=== PATIENT | female | born 1985 | race Caucasian/White ===

== ENCOUNTER 2016-08-17 20:11 | Emergency (ER) | payer OTHER ==
[2016-08-17 20:23] VITALS: TEMP 98.3; BMI 45.8
--- NOTE | 2016-08-17 20:48 | PDOC ---
History of Present Illness - General History Source: Patient <Graham Alfonso - Last Filed: 08/18/16 00:25> - General History Source: Patient Exam Limitations: No Limitations - History of Present Illness Initial Comments: 08/17/16 20:57 The patient is a 31 year old female with no significant past medical history who presents to the ED for 2 days of frequency, urgency, and dysuria. Patient reports associated R flank pain. She also has complaints of R lower quadrant pain, fever, chills, sore throat, and generalized malaise. Denies nausea, vomiting, or diarrhea. Denies any sick contacts. States she is currently on her menses and does not believe she is . The patient denies diaphoresis, cough, SOB, chest pain, and palpitations. Allergies: NKDA Social History: Denies alcohol, tobacco, or drug use. Past Surgical History: None reported PCP: None reported <Iesha Garcia - Last Filed: 08/18/16 01:29> - General Chief Complaint: Pain Stated Complaint: THROAT/STOMACH PAIN Time Seen by Provider: 08/17/16 20:44 Past History - Past Medical History GI Disorders: Yes (Fatty liver (steatosis)) - Psycho/Social/Smoking Cessation Hx Anxiety: No Suicidal Ideation: No Smoking History: Never smoked Information on smoking cessation initiated: No Hx Alcohol Use: No Drug/Substance Use Hx: No Substance Use Type: None <Graham Alfonso - Last Filed: 08/18/16 00:25> <Iesha Garcia - Last Filed: 08/18/16 01:29> - Past Medical History Allergies/Adverse Reactions: Allergies Allergy/AdvReac Type Severity Reaction Status Date / Time No Known Allergies Allergy Verified 08/17/16 20:18 Home Medications: Ambulatory Orders Ibuprofen 800 mg PO TID #30 tablet 08/18/16 Levofloxacin [Levaquin -] 500 mg PO DAILY #7 tablet 08/18/16 Review of Systems - Review of Systems Able to Perform ROS?: Yes Comments:: 08/17/16 20:57 CONSTITUTIONAL: +fever, chills, generalized malaise Absent: no fatigue EYES: Absent: visual changes ENT: +sore throat Absent: ear pain CARDIOVASCULAR: Absent: chest pain, no palpitations RESPIRATORY: Absent: cough, no SOB GI: +R lower quadrant pain Absent: no nausea, no vomiting, no constipation, no diarrhea GENITOURINARY: +frequency, urgency, dysuria, R flank pain MUSCULOSKELETAL: Absent: back pain, no arthralgia, no myalgia SKIN: Absent: rash NEURO: Absent: headache <RadhaChristianoIesha - Last Filed: 08/18/16 01:29> *Physical Exam - Vital Signs Last Vital Signs Temp Pulse Resp BP Pulse Ox 98.3 F 83 20 120/82 97 08/17/16 20:19 08/17/16 20:19 08/17/16 20:19 08/17/16 20:19 08/17/16 20:19 <Graham Alfonso - Last Filed: 08/18/16 00:25> - Vital Signs Last Vital Signs Temp Pulse Resp BP Pulse Ox 98.3 F 83 20 120/82 97 08/17/16 20:19 08/17/16 20:19 08/17/16 20:19 08/17/16 20:19 08/17/16 20:19 - Physical Exam Comments: 08/17/16 20:57 GENERAL: Well-appearing, well-nourished. No apparent distress. HEENT: Normocephalic, atraumatic. PERRL, EOM intact. Oropharynx is clear. CARDIOVASCULAR: Normal S1, S2. Regular rate and rhythm. PULMONARY: Clear to auscultation bilaterally. ABDOMEN: Soft, non-distended, mild right lower quadrant tenderness. No rebound or guarding. EXTREMITIES: Normal ROM in all four extremities. No gross deformities. SKIN: Warm, dry. No rash NEUROLOGICAL: No focal neurological deficits. <Iesha Garcia - Last Filed: 08/18/16 01:29> Medical Decision Making - Medical Decision Making 08/18/16 00:27 Dr. Alfonso: The scribe's documentation has been prepared under my direction and personally reviewed by me in its entirery. I confirm that the note above accurately reflects all work, treatment, procedures, and medical decision making performed by me. <Graham Alfonso - Last Filed: 08/18/16 00:25> *DC/Admit/Observation/Transfer - Discharge Dispostion Admit: No <Graham Alfonso - Last Filed: 08/18/16 00:25> - Attestations Scribe Attestion: 08/17/16 20:57 Documentation prepared by Iesha Garcia, acting as biomedical scientist for Graham Alfonso MD/DO. <Iesha Garcia - Last Filed: 08/18/16 01:29> Diagnosis at time of Disposition: Dysuria, Pelvic pain, Ovarian cyst - Discharge Dispostion Disposition: HOME Condition at time of disposition: Stable - Prescriptions Prescriptions: Ibuprofen 800 mg PO TID #30 tablet Levofloxacin [Levaquin -] 500 mg PO DAILY #7 tablet - Referrals Referrals: Justus Major MD [Primary Care Provider] - Terrence Aponte MD [Staff Physician] - - Patient Instructions Printed Discharge Instructions: DI for Dysuria -- Adult, DI for Ovarian Cyst Print Language: EAST TIMOR[place]
[2016-08-17 21:51] LABS: URINE APPEARANCE CLEAR; URINE BILIRUBIN NEGATIVE (NEGATIVE); URINE COLOR STRAW; URINE GLUCOSE (UA) NEGATIVE (NEGATIVE); URINE KETONE NEGATIVE (NEGATIVE); URINE LEUK ESTERASE NEGATIVE (NEGATIVE); URINE NITRITE NEGATIVE (NEGATIVE); URINE PROTEIN NEGATIVE (NEGATIVE); URINE UROBILINOGEN 2.0 E.U/dl E.U./dl (0.2-1.0)
[2016-08-17 22:23] LABS: URINE BLOOD 3+ (NEGATIVE)
[2016-08-17 23:04] LABS: URINE BACTERIA RARE /hpf (NONE SEEN); URINE MUCUS RARE; URINE RBC 629 /hpf (0-3); URINE WBC 1 /hpf (3-5)
[2016-08-18] MEDS ORDERED: IBUPROFEN 400 MG TABLET (FP) PO ONE ×2 (00:24→00:28)
[2016-08-18] MEDS ORDERED: LEVOFLOXACIN 500 MG TABLET (FP) PO ONE (00:25)
[2016-08-18] MEDS ORDERED: LEVOFLOXACIN 500 MG TABLET (FP) ONE (00:28)
[2016-08-18 00:38] VITALS: BP 118/78; PULSE 72
== END 2016-08-18 00:33 | disposition home or self-care (01) ==
LOC: JER 20:11
DX: N83.209 Unspecified ovarian cyst, unspecified side (principal); R30.0 Dysuria; R10.2 Pelvic and perineal pain; K76.0 Fatty (change of) liver, not elsewhere classified
CPT/HCPCS: 76830-TC; 81003; 81015; 84703; 87086; 99282-25

== ENCOUNTER 2017-12-01 00:22 | Emergency (ER) | payer OTHER ==
[2017-12-01 01:20] VITALS: BP 159/78; PULSE 82; TEMP 98.1; BMI 44.5
[2017-12-01] MEDS ORDERED: FLUORESCEIN NA 1 EA STRIP OU ONE (01:32)
[2017-12-01] MEDS ORDERED: TETRACAINE 0.5% HCL 0.6ML DROPPER.BOTTLE OP ONE (01:32)
[2017-12-01] MEDS ORDERED: TETRACAINE 0.5% OPHTH SOLN 2 ML BOTTLE ONE (01:48)
[2017-12-01] MEDS ORDERED: FLUORESCEIN NA 1 EA STRIP ONE (01:48)
[2017-12-01] MEDS ORDERED: ERYTHROMYCIN 0.5% OPHTHALMIC OINTMENT 3.5 GM TUBE OU ONE (02:02)
[2017-12-01] MEDS ORDERED: ERYTHROMYCIN 0.5% OPHTHALMIC OINTMENT 3.5 GM TUBE ONE (02:05)
[2017-12-01 02:11] LABS: URINE APPEARANCE SLCLOUDY; URINE BILIRUBIN NEGATIVE (<2.0 mg/dL); URINE COLOR DKYELLOW; URINE GLUCOSE (UA) NEGATIVE (NEGATIVE); URINE KETONE NEGATIVE (NEGATIVE); URINE LEUK ESTERASE NEGATIVE (NEGATIVE); URINE NITRITE NEGATIVE (NEGATIVE); URINE UROBILINOGEN NEGATIVE mg/dL (0.2-1.0)
[2017-12-01 02:12] LABS: HCG,QUALITATIVE URINE Negative
--- NOTE | 2017-12-01 02:12 | PDOC ---
History of Present Illness - General Chief Complaint: Pain Stated Complaint: pain in the left arm Time Seen by Provider: 12/01/17 01:01 History Source: Patient - History of Present Illness Initial Comments: 12/01/17 02:09 32 year old female c/o left shoulder pain x 1 week with lateral neck heaviness and left eye redness and pain x 3 days and frequent tearing. Patient reports that she woke up with left eye swelling which has gotten better, now with increased tearing and pain. patient reports that eye is itchy. denies nausea / vomiting, abdominal pain, fever/ chills, chest pain, diaphoresis Past History - Past Medical History Allergies/Adverse Reactions: Allergies Allergy/AdvReac Type Severity Reaction Status Date / Time No Known Allergies Allergy Verified 08/02/17 22:31 Home Medications: Ambulatory Orders Ibuprofen 800 mg PO TID #30 tablet 08/18/16 levoFLOXacin [Levaquin -] 500 mg PO DAILY #7 tablet 08/18/16 Cephalexin Monohydrate [Keflex -] 500 mg PO BID #14 capsule 12/01/17 Erythromycin 0.5% Eye Ointment [Erythromycin 0.5% Eye Ointment -] 1 applic OU BID #1 tube 12/01/17 COPD: No GI Disorders: Yes (Fatty liver (steatosis)) - Suicide/Smoking/Psychosocial Hx Smoking History: Never smoked Have you smoked in the past 12 months: No Information on smoking cessation initiated: No Hx Alcohol Use: No Drug/Substance Use Hx: No Substance Use Type: None Review of Systems - Review of Systems Able to Perform ROS?: Yes Is the patient limited Fijian proficient: No Constitutional: No: Symptoms Reported, See HPI, Chills, Diaphoresis, Fever, Loss of Appetite, Malaise, Night Sweats, Weakness, Weight Stable, Unintentional Wgt. Loss, Unexplained wgt Loss, Other HEENTM: Yes: Eye Pain Musculoskeletal: Yes: Other (left shoulder and neck pain) *Physical Exam - Vital Signs Last Vital Signs Temp Pulse Resp BP Pulse Ox 98.1 F 82 18 159/78 99 12/01/17 01:16 12/01/17 01:16 12/01/17 01:16 12/01/17 01:16 12/01/17 01:16 - Physical Exam General Appearance: Yes: Appropriately Dressed HEENT: positive: Other (left eye + fluorescein intake. erythema. vision intact, pupils reactive) Respiratory/Chest: positive: Lungs Clear, Normal Breath Sounds Cardiovascular: positive: Regular Rhythm, Regular Rate Gastrointestinal/Abdominal: positive: Normal Bowel Sounds, Soft Musculoskeletal: negative: Vertebral Tenderness Extremity: positive: Normal Capillary Refill, Normal Inspection, Normal Range of Motion Integumentary: positive: Normal Color, Dry, Warm Neurologic: positive: Fully Oriented, Alert, Normal Mood/Affect Heart Score/ECG Review - ECG Intrepretation Rhythm: Regular Rhythm Comment:: 12/01/17 03:[address] and T wave abnormality; 75 bpm 12/01/17 03:04 ED Treatment Course - LABORATORY CBC & Chemistry Diagram: 12/01/17 02:46 12/01/17 02:46 - Medications Given in the ED: ED Medications Discontinued Medications Generic Name Dose Route Start Last Admin Trade Name Freq PRN Reason Stop Dose Admin Fluorescein Sodium 1 ea 12/01/17 01:32 12/01/17 01:58 Fluorets - OU 12/01/17 01:33 1 ea ONCE ONE Administration Tetracaine HCl 1 drop 12/01/17 01:32 12/01/17 01:58 Tetravisc 0.5% Eye Drops - OP 12/01/17 01:33 1 drop ONCE ONE Administration Progress Note - Progress Note Progress Note: A: left shoulder and neck pain non reproducible. will r/o cardiac cause corneal abrasion P: 1. pain control EKG flipped Ts wiill rule cardiac cause. cbc/ cmp/ troponin. WNL UA: large WBC. will treat *DC/Admit/Observation/Transfer Diagnosis at time of Disposition: Shoulder pain, left Qualifiers: Chronicity: acute Qualified Code(s): M25.512 - Pain in left shoulder Corneal abrasion, left Qualifiers: Encounter type: initial encounter Qualified Code(s): S05.02XA - Injury of conjunctiva and corneal abrasion without foreign body, left eye, initial encounter UTI (urinary tract infection) Qualifiers: Urinary tract infection type: acute cystitis Hematuria presence: with hematuria Qualified Code(s): N30.01 - Acute cystitis with hematuria - Discharge Dispostion Disposition: HOME - Prescriptions Prescriptions: Cephalexin Monohydrate [Keflex -] 500 mg PO BID #14 capsule Erythromycin 0.5% Eye Ointment [Erythromycin 0.5% Eye Ointment -] 1 applic OU BID #1 tube - Referrals Referrals: Tal Howe MD [Staff Physician] - Call tomorrow - Patient Instructions Printed Discharge Instructions: Corneal Abrasion Additional Instructions: take ibuprofen every 6 hours as needed for pain take cephalexin as prescribed. follow up with your doctor as soon as possible drink plenty of fluids - Post Discharge Activity Forms/Work/School Notes: Back to Work
[2017-12-01] MEDS ORDERED: KETOROLAC TROMETHAMINE 30 MG/1 ML VIAL IM ONE (02:13)
[2017-12-01 02:14] LABS: URINE PROTEIN 2+ (NEGATIVE)
[2017-12-01 02:15] LABS: EPI CELLS FEW /HPF (FEW); YEAST FEW
[2017-12-01] MEDS ORDERED: KETOROLAC TROMETHAMINE 30 MG/1 ML VIAL ONE (02:25)
[2017-12-01 03:14] LABS: BASO % 0.7 % (0-2.0); EOS % 0.4 % (0-4.5); HEMATOCRIT 39.4 % (32.4-45.2); HEMOGLOBIN 13.6 GM/dL (10.7-15.3); LYMPH % 35.8 % (8-40); MCH 31.8 pg (25.7-33.7); MCHC 34.5 g/dl (32.0-36.0); MEAN CELL VOLUME 92.1 fl (80-96); MEAN PLT VOLUME 11.5 fl (7.5-11.1); MONO % 6.7 % (3.8-10.2); NEUT % 56.4 % (42.8-82.8); PLATELET COUNT 139 K/MM3 (134-434); RBC 4.28 M/mm3 (3.60-5.2); RDW 13.6 % (11.6-15.6); WHITE BLOOD COUNT 8.6 K/mm3 (4.0-10.0)
[2017-12-01 03:54] LABS: ALBUMIN 3.8 g/dl (3.4-5.0); ALK PHOS 92 U/L (45-117); ANION GAP 7 MMOL/L (8-16); BILIRUBIN,TOTAL 0.5 mg/dL (0.2-1); BLOOD UREA NITROGEN 12 mg/dL (7-18); CALCIUM 8.4 mg/dL (8.5-10.1); CHLORIDE 105 mmol/L (98-107); CO2 26 mmol/L (21-32); CREATININE 0.7 mg/dL (0.55-1.3); GLUCOSE,RANDOM 88 mg/dL (74-106); POTASSIUM 3.6 mmol/L (3.5-5.1); SGOT/AST 34 U/L (15-37); SGPT/ALT 55 U/L (13-61); SODIUM 138 mmol/L (136-145); TOT PROT 7.3 g/dl (6.4-8.2)
--- NOTE | 2017-12-01 15:28 | EKG ---
Test Reason : Blood Pressure : / mmHG Vent. Rate : 075 BPM Atrial Rate : 075 BPM P-R Int : 152 ms QRS Dur : 078 ms QT Int : 414 ms P-R-T Axes : 049 081 047 degrees QTc Int : 462 ms POOR DATA QUALITY, INTERPRETATION MAY BE ADVERSELY AFFECTED NORMAL SINUS RHYTHM NONSPECIFIC ST AND T WAVE ABNORMALITY ABNORMAL ECG NO PREVIOUS ECGS AVAILABLE Confirmed by MD Chalo, Joseph ([id number]) on 12/01/2017 3:27:54 PM Referred By: Confirmed By:Joseph Isabel MD
== END 2017-12-01 04:16 | disposition home or self-care (01) ==
LOC: JER 00:22
DX: S05.02XA Injury of conjunctiva and corneal abrasion without foreign body, left eye, initial encounter (principal); N30.01 Acute cystitis with hematuria; X58.XXXA Exposure to other specified factors, initial encounter; Y93.89 Activity, other specified; Y92.89 Other specified places as the place of occurrence of the external cause; Y99.8 Other external cause status
CPT/HCPCS: 36415; 80053; 81003; 81015; 84484; 84703; 85025; 93005; 93010; 99281-25

== ENCOUNTER → 2019-01-03 | Day surgery (SDC) | payer OTHER ==
--- NOTE | 2019-01-06 18:10 | PATH ---
Surgical Pathology Report Patient Name: ROMERO DESHPANDE [facility]. Rec. #: [id number] /Age/Gender: 1985 (Age: 33) / F Account: [id number] Location: RADIOLOGY [facility] Taken: 01/03/2019 Received: 01/03/2019 Reported: 01/06/2019 Physicians: Patricia George M.D. Specimen(s) Received A: LEFT BREAST CORE BIOPSY LESION #1 B: LEFT BREAST CORE BIOPSY LESION #2 Clinical History Lesion #1, 8-9:00, 1.3 cm mass Lesion #2, 8-9:00, 1.2 cm mass Final Diagnosis A. BREAST, LEFT, 8:30, LESION #1, ULTRASOUND GUIDED CORE BIOPSY: BENIGN BREAST PARENCHYMA WITH STROMAL FIBROSIS AND MICROCYSTS. B. BREAST, LEFT, 8:30, LESION #2, ULTRASOUND GUIDED CORE BIOPSY: BENIGN BREAST PARENCHYMA WITH STROMAL FIBROSIS, MICROCYSTS, AND ASSOCIATED MICROCALCIFICATIONS. Electronically Signed Nicky Balbuena M.D. Gross Description A. Received in formalin labeled "left breast 8:30 #1," are 4 johnston-yellow, cylindrical portions of fibroadipose tissue ranging from 0.6-1.5 cm in length and averaging 0.1 cm in diameter. The specimens are submitted in toto in one cassette. B. Received in formalin labeled "left breast 8:30 #2," are 5 johnston-yellow, cylindrical portions of fibroadipose tissue ranging from 0.2-0.4 cm in length and averaging 0.1 cm diameter. The specimens are submitted in toto in one cassette. Time to formalin fixation: Less than one minute Total formalin fixation time: Approximately 7 hours. /01/03/2019 [place]udi01/03/2019
== END | disposition home or self-care (01) ==
LOC: JRADUS-SUR 09:30 → FRAD 09:30
PROVIDERS: ATTEND Physician Assistant
PROC: 0H9U3ZX Drainage of Left Breast, Percutaneous Approach, Diagnostic (ICD-10-PCS; principal; 2019-01-03)
DX: D24.2 Benign neoplasm of left breast (principal)
CPT/HCPCS: 19083; 19084; 87899; 88305-TC; A4648

== ENCOUNTER 2019-10-18 13:56 | Emergency (ER) | payer OTHER ==
[2019-10-18 14:10] VITALS: BMI 40.0
[2019-10-18 15:40] LABS: PH,URINE 7.5 (5.0-8.0); URINE APPEARANCE CLEAR; URINE BILIRUBIN NEGATIVE (NEGATIVE); URINE COLOR YELLOW; URINE GLUCOSE (UA) NEGATIVE (NEGATIVE); URINE KETONE NEGATIVE (NEGATIVE); URINE LEUK ESTERASE NEGATIVE (NEGATIVE); URINE NITRITE NEGATIVE (NEGATIVE); URINE PROTEIN NEGATIVE (NEGATIVE); URINE UROBILINOGEN 0.2 mg/dL (0.2-1.0)
[2019-10-18] MEDS ORDERED: ACETAMINOPHEN 325 MG TABLET (FP) PO ONE (15:43)
--- NOTE | 2019-10-18 15:43 | PDOC ---
History of Present Illness - General Chief Complaint: Pain, Acute Stated Complaint: BACK/EAR PAIN Time Seen by Provider: 10/18/19 14:19 - History of Present Illness Initial Comments: 34 yo female with PMH of ovarian cysts presents with right ear pain and right sided back pain. Her right ear pain began 3 days ago and the symptoms progressed from itchiness/pain to ringing and loss of hearing. She has taken ear wax removal drops in her ear and used a q-tip to attempt to dislodge ear wax. She denies drainage, fevers, chills, recent URI. Her right sided back pain started 2 weeks ago and radiates to the abdomen. It is intermittent and associated with movement. She had 1 episode of hematuria. Never had a history of renal stones. She has taken tylenol/ibuprofen for pain, last dose was yesterday. She denies fevers, chills, dysuria, cp, sob. Past History - Medical History Allergies/Adverse Reactions: Allergies Allergy/AdvReac Type Severity Reaction Status Date / Time No Known Allergies Allergy Verified 10/18/19 14:06 Home Medications: Ambulatory Orders Acetaminophen [Tylenol] 325 mg PO TID #30 capsule 10/18/19 Amoxicillin/Potassium Clav [Augmentin 875-125 Tablet] 1 each PO BID 10 Days #20 tablet 10/18/19 Ibuprofen 400 mg PO TID #30 tablet 10/18/19 COPD: No GI Disorders: Yes (Fatty liver (steatosis)) - Reproductive History Is Patient Now?: No - Psycho-Social/Smoking History Smoking History: Never smoked Have you smoked in the past 12 months: No - Substance Abuse Hx (Audit-C & DAST Scrn) How often the patient has a drink containing alcohol: Never Score: In Men: 4 or > Positive; In Women: 3 or > Positive: 0 Screen Result (Pos requires Nsg. Audit-10AR): Negative In the last yr the pt used illegal drug/Rx for NonMed reason: No Score: Yes response is considered Positive: 0 Screen Result (Positive result requires Nsg. DAST-10): Negative Review of Systems - Review of Systems Constitutional: No: Chills, Fever HEENTM: Yes: Tinnitus, Other (difficulty hearing. sharp ear pain.). No: Recent change in vision, Double Vision, Ear Discharge Respiratory: No: Cough, Shortness of Breath Cardiac (ROS): No: Chest Pain, Palpitations ABD/GI: No: Diarrhea, Nausea, Vomiting : Yes: Flank Pain, Hematuria (2 weeks ago). No: Burning, Dysuria, Discharge, Frequency Musculoskeletal: Yes: Back Pain (right sided) Integumentary: No: Lesions, Pallor, Rash Neurological: Yes: Dizziness. No: Headache Psychiatric: No: Anxiety, Depression, Mood Swings Endocrine: No: Intolerance to Cold, Intolerance to Heat *Physical Exam - Vital Signs Last Vital Signs Temp Pulse Resp BP Pulse Ox 98.5 F 71 20 117/76 99 10/18/19 14:08 10/18/19 15:00 10/18/19 15:00 10/18/19 15:00 10/18/19 15:00 - Physical Exam General Appearance: Yes: Appropriately Dressed. No: Apparent Distress HEENT: positive: EOMI, Normal Voice Neck: negative: Tender, Rigid Respiratory/Chest: positive: Lungs Clear, Normal Breath Sounds. negative: Respiratory Distress Cardiovascular: positive: Regular Rhythm, Regular Rate, S1, S2 Gastrointestinal/Abdominal: positive: Flat, Soft, Other (right sided costovertebral tenderness. RLQ and suprapubic tenderness.). negative: Pulsatile Mass Musculoskeletal: positive: Normal Inspection, CVA Tenderness Extremity: positive: Normal Capillary Refill, Normal Inspection, Normal Range of Motion, Other (negative straight leg test) Integumentary: positive: Normal Color, Dry, Warm Neurologic: positive: Fully Oriented, Alert, Normal Mood/Affect ED Treatment Course - LABORATORY CBC & Chemistry Diagram: 10/18/19 15:30 10/18/19 15:30 - RADIOLOGY Radiology Studies Ordered: Category Date Time Status KIDNEY / RENAL US [US] Stat Ultrasound 10/18/19 15:20 Ordered Medical Decision Making - Medical Decision Making 34 yo female with PMH of ovarian cysts presents with right ear pain and right sided back pain. Right Ear Pain - ear pain, tinnitus, difficulty hearing - bulging tympanic membrane - most likely acute otitis media - amoxicillin sent to pharmacy Right Abdominal Pain - radiating to flank, 1 episode of hematuria - cbc, cmp, urine are negative - renal US negative for hydronephrosis - RUQ US negative for cholecystits - CT abdomen/pelvis negative for appendicitis Pt is stable for discharge Agreeable to follow up with GI for further workup of her RLQ pain Discharge - Discharge Information Problems reviewed: Yes Clinical Impression/Diagnosis: Acute otitis media, Abdominal pain Condition: Stable Disposition: HOME - Admission No - Additional Discharge Information Prescriptions: Amoxicillin/Potassium Clav [Augmentin 875-125 Tablet] 1 each PO BID 10 Days #20 tablet Ibuprofen 400 mg PO TID #30 tablet Acetaminophen [Tylenol] 325 mg PO TID #30 capsule - Follow up/Referral Referrals: Colby Florez PA [Primary Care Provider] - () Colby Patino MD [Staff Physician] - Vinicius Richter MD [Staff Physician] - - Patient Discharge Instructions Additional Instructions: Take your medication at home as prescribed for your ear infection and your abdominal pain. Follow up with your PCP and the OBGYN and Gastrointestinal doctors on your referral within 5 days. Return to the ED if your condition worsens and/or you experience worsening ear pain, discharge, headache, fevers, chills, worsening abdominal pain, diarrhea, constipation, bloody stools. - Post Discharge Activity
[2019-10-18 15:50] LABS: HEMATOCRIT 38.4 % (32.4-45.2); HEMOGLOBIN 13.1 GM/dL (10.7-15.3); MCH 31.9 pg (25.7-33.7); MCHC 34.1 g/dl (32.0-36.0); MEAN CELL VOLUME 93.5 fl (80-96); MEAN PLT VOLUME 11.2 fl (7.5-11.1); PLATELET COUNT 125 K/MM3 (134-434); RDW 13.1 % (11.6-15.6); WHITE BLOOD COUNT 6.6 K/mm3 (4.0-10.0)
[2019-10-18] MEDS ORDERED: ACETAMINOPHEN 325 MG TABLET (FP) ONE (16:10)
[2019-10-18 16:13] LABS: ALBUMIN 3.7 g/dl (3.4-5.0); BILIRUBIN,TOTAL 0.2 mg/dL (0.2-1); BLOOD UREA NITROGEN 11.4 mg/dL (7-18); CALCIUM 8.5 mg/dL (8.5-10.1); CREATININE 0.7 mg/dL (0.55-1.3); POTASSIUM 3.5 mmol/L (3.5-5.1); TOT PROT 6.8 g/dl (6.4-8.2)
[2019-10-18] MEDS ORDERED: IBUPROFEN 400 MG TABLET (FP) PO ONE ×3 (16:37→17:40)
--- NOTE | 2019-10-18 16:37 | PDOC ---
Documentation entered by Kolton Green SCRIBE, acting as scribe for Zoila Darden MD. Zoila Darden MD: This documentation has been prepared by the Norma guillen Aaron, SCRIBE, under my direction and personally reviewed by me in its entirety. I confirm that the documentation accurately reflects all work, treatment, procedures, and medical decision making performed by me. Attending Attestation - Resident Resident Name: Herbert Thrasher - HPI HPI: 10/18/19 15:53 The patient is a 34 year old female with a significant PMH of ovarian cysts who presents to the emergency department for R ear pain and R sided back pain. Patient reports that ear pain began 3 days ago with itchiness, pain, and ringing and has since progressed to hearing loss. Patient used ear wax removal drops and q-tip to try to dislodge ear wax. Patient denies drainage, fever, chills, or recent URI. Patient reports R sided back pain began 2 weeks ago, has been intermittent, and radiates to the abdomen. She took tylenol/ibuprofen for pain yesterday. Patient denies SOB, chest pain, dysuria, or any other symptoms. Allergies: NKDA Past surgical history: no history of renal stones PCP: Colby Florez PA - Physicial Exam PE: 10/18/19 16:22 Agree with resident exam. patient is alert and oriented and in no acute distress. + tenderness in the RUQ without guarding or rebound, + cardoza's. - Medical Decision Making 10/18/19 16:34 Pt presents to the ED complaining of RUQ pain with nausea without vomiting. Will check RUQ US to rule out cholecystitis. Also complaining of R ear pain, exam consistent with otitis--will treat with amoxicillin. Will give pain control and reassess. Discharge - Discharge Information Problems reviewed: Yes Clinical Impression/Diagnosis: Acute otitis media, Abdominal pain Condition: Stable Disposition: HOME - Additional Discharge Information Prescriptions: Amoxicillin/Potassium Clav [Augmentin 875-125 Tablet] 1 each PO BID 10 Days #20 tablet Ibuprofen 400 mg PO TID #30 tablet Acetaminophen [Tylenol] 325 mg PO TID #30 capsule - Follow up/Referral Referrals: Colby Florez PA [Primary Care Provider] - () Colby Patino MD [Staff Physician] - Vinicius Richter MD [Staff Physician] - - Patient Discharge Instructions Additional Instructions: Take your medication at home as prescribed for your ear infection and your abdominal pain. Follow up with your PCP and the OBGYN and Gastrointestinal doctors on your referral within 5 days. Return to the ED if your condition worsens and/or you experience worsening ear pain, discharge, headache, fevers, chills, worsening abdominal pain, diarrhea, constipation, bloody stools. - Post Discharge Activity
[2019-10-18 21:45] VITALS: BP 121/74; PULSE 76; TEMP 97.9
== END 2019-10-18 21:45 | disposition home or self-care (01) ==
LOC: JER 13:56
DX: H66.90 Otitis media, unspecified, unspecified ear (principal); R10.9 Unspecified abdominal pain
CPT/HCPCS: 36415; 74177-TC; 76705-TC; 76775-TC; 80053; 81003; 84703; 85027; 87086; 99285-25; Q9967

== ENCOUNTER 2020-08-07 21:50 | Emergency (ER) | payer OTHER ==
[2020-08-07 22:00] VITALS: BP 140/90; PULSE 87; TEMP 98.5; BMI 35.3
[2020-08-07] MEDS ORDERED: ACETAMINOPHEN 325 MG TABLET (FP) PO ONE (22:18)
[2020-08-07] MEDS ORDERED: ACETAMINOPHEN 325 MG TABLET (FP) ONE (22:29)
[2020-08-07 22:45] LABS: EPI CELLS 11 /uL (0-25.1); HYALINE CASTS 0 /uL (0-3.1); URINE APPEARANCE CLEAR; URINE BACTERIA 116 /uL (0-1359); URINE BILIRUBIN NEGATIVE (NEGATIVE); URINE COLOR YELLOW; URINE GLUCOSE (UA) NEGATIVE (NEGATIVE); URINE KETONE NEGATIVE (NEGATIVE); URINE LEUK ESTERASE NEGATIVE (NEGATIVE); URINE NITRITE NEGATIVE (NEGATIVE); URINE PROTEIN NEGATIVE (NEGATIVE); URINE RBC 11 /uL (0-23.9); URINE UROBILINOGEN 0.2 mg/dL (0.2-1.0); URINE WBC 4 /uL (0-25.8)
[2020-08-07 22:55] LABS: BASO % 0.7 % (0-2.0); EOS % 0.6 % (0-4.5); HEMATOCRIT 40.1 % (32.4-45.2); HEMOGLOBIN 14.2 GM/dL (10.7-15.3); LYMPH % 38.7 % (8-40); MCH 32.5 pg (25.7-33.7); MCHC 35.5 g/dl (32.0-36.0); MEAN CELL VOLUME 91.6 fl (80-96); MEAN PLT VOLUME 10.9 fl (7.5-11.1); MONO % 8.1 % (3.8-10.2); NEUT % 51.9 % (42.8-82.8); PLATELET COUNT 131 K/MM3 (134-434); RBC 4.38 M/mm3 (3.60-5.2); WHITE BLOOD COUNT 5.5 K/mm3 (4.0-10.0)
[2020-08-07 22:58] LABS: CALCIUM 8.3 mg/dL (8.5-10.1)
[2020-08-07 22:59] LABS: ALBUMIN 4.2 g/dl (3.4-5.0); BLOOD UREA NITROGEN 11.1 mg/dL (7-18)
[2020-08-07 23:02] LABS: CREATININE 0.7 mg/dL (0.55-1.3)
[2020-08-07 23:03] LABS: BILIRUBIN,TOTAL 0.4 mg/dL (0.2-1); TOT PROT 7.8 g/dl (6.4-8.2)
[2020-08-07] MEDS ORDERED: morphine CARPU-JECT 4 MG/1 ML DISP.SYRIN IVPUSH ONE (23:31)
[2020-08-07] MEDS ORDERED: morphine SULFATE 4 MG/ML VIAL ONE (23:57)
== END 2020-08-08 01:55 | disposition home or self-care (01) ==
LOC: JER 21:50
PROC: 3E033GC Introduction of Other Therapeutic Substance into Peripheral Vein, Percutaneous Approach (ICD-10-PCS; principal; 2020-08-07)
DX: R10.84 Generalized abdominal pain (principal)
CPT/HCPCS: 36415; 74177-TC; 76705-TC; 76775-TC; 80053; 81003; 83690; 84703; 85025; 87086; 93005; 93010; 99285-25; Q9967